=== PATIENT | female | born 1935 | race Caucasian/White ===

== ENCOUNTER 2018-11-25 13:08 | Emergency (ER) | payer MEDICARE, BC ==
[2018-11-25 13:51] VITALS: BP 188/84
--- NOTE | 2018-11-25 13:56 | ER Document Report ---
ED Blood Pressure Problem - General Chief Complaint: High Blood Pressure Stated Complaint: BLOOD PRESSURE ISSUES Time Seen by Provider: 11/25/18 13:21 Notes: Patient is a 82-year-old female presents to the emergency department for fluctuation in her blood pressure. Patient states her primary care provider has been "watching my blood pressures closely" over the last couple of weeks. States she has had increasing and decreases in her blood pressures relatively frequently. States yesterday morning she took her blood pressure and it was 118/68. States today prior to arrival to the emergency department she took it on and it was 154/82. States she is visiting from [place]. States she is here for a family reunion "there are so many people everywhere." States she does feel very anxious about her blood pressure and that her entire family is in town for this family reunion. Patient is denying headache, lightheadedness, dizziness, weakness, chest pain, shortness of breath, any other symptoms. Patient states she would not have presented to the emergency department except "every time I took my blood pressure it had a different reading." Patient takes valsartan, HCTZ, amlodipine, propranolol TRAVEL OUTSIDE OF THE [place] IN LAST 30 DAYS: No - Related Data Allergies/Adverse Reactions: No Known Allergies Allergy (Verified 11/25/18 13:09) Past Medical History - General Information source: Patient - Social History Smoking Status: Former Smoker Frequency of alcohol use: occassionally with dinner Drug Abuse: None Family History: Reviewed & Not Pertinent Patient has suicidal ideation: No Patient has homicidal ideation: No - Past Medical History Cardiac Medical History: Reports: Hx Hypertension Renal/ Medical History: Denies: Hx Peritoneal Dialysis Past Surgical History: Reports: Hx Breast Surgery - left lumpectomy, Hx Thyroid Surgery - completely removed Review of Systems - Review of Systems Constitutional: No symptoms reported EENT: No symptoms reported Cardiovascular: No symptoms reported Respiratory: No symptoms reported Gastrointestinal: No symptoms reported Genitourinary: No symptoms reported Female Genitourinary: No symptoms reported Musculoskeletal: No symptoms reported Skin: No symptoms reported Hematologic/Lymphatic: No symptoms reported Neurological/Psychological: No symptoms reported Physical Exam - Vital signs Vitals: Temp Pulse Resp BP Pulse Ox 98.0 F 70 14 169/95 H 98 11/25/18 13:11 11/25/18 13:11 11/25/18 13:11 11/25/18 13:11 11/25/18 13:11 - Notes Notes: GENERAL: Alert, interacts well. No acute distress. HEAD: Normocephalic, atraumatic. EYES: Pupils equal, round, and reactive to light. Extraocular movements intact. ENT: Oral mucosa moist, tongue midline. NECK: Full range of motion. Supple. Trachea midline. LUNGS: Clear to auscultation bilaterally, no wheezes, rales, or rhonchi. No respiratory distress. HEART: Regular rate and rhythm. No murmur ABDOMEN: Soft, non-tender. Non-distended. Bowel sounds present in all 4 quadrants. EXTREMITIES: Moves all 4 extremities spontaneously. No edema, normal radial and dorsalis pedis pulses bilaterally. No cyanosis. 5 out of 5 strength all 4 extremities BACK: no cervical, thoracic, lumbar midline tenderness. No saddle anesthesia, normal distal neurovascular exam. NEUROLOGICAL: Alert and oriented x3. Normal speech. cranial nerves II through XII grossly intact PSYCH: Normal affect, normal mood. SKIN: Warm, dry, normal turgor. No rashes or lesions noted. Course - Re-evaluation Re-evalutation: 11/25/18 13:50 Discussed this case with my attending Dr. Cash Sanchez. Discussed patient's anxiety and fluctuating blood pressures. Discussed patient's medication regimen. Dr. Sanchez and iron agreements the patient should follow-up with her primary care provider tomorrow. Discussed with her that she can call him although he is in [place] should he want to change any of her medication regimens he could do that over the phone. Also discussed with patient close return precautions. Discussed should she develop headache, chest pain, dizziness, weakness, trouble breathing, lightheadedness, any other symptoms she should return to the emergency room. Also discussed with her that she should continue to take her medications as prescribed. Patient stable for discharge. - Vital Signs Vital signs: Temp Pulse Resp BP Pulse Ox 98.0 F 70 14 169/95 H 98 11/25/18 13:11 11/25/18 13:11 11/25/18 13:11 11/25/18 13:11 11/25/18 13:11 Discharge - Discharge Clinical Impression: Hypertension Qualifiers: Hypertension type: unspecified Qualified Code(s): I10 - Essential (primary) hypertension Condition: Stable Disposition: HOME, SELF-CARE Instructions: High Blood Pressure ([facility]) Additional Instructions: As we discussed you have been seen and treated in the emergency department for your high blood pressure. It is my recommendation that you call your primary care provider today or tomorrow. It is also my recommendation that you continue to take your blood pressure medications as prescribed and take your blood pressure twice a day. Please return to the emergency room should you have any concerns to include but not limited to chest pain, shortness of breath, dizziness, weakness, lightheadedness.
== END 2018-11-25 13:55 | disposition home or self-care (01) ==
LOC: ER 13:08
DX: I10 Essential (primary) hypertension (principal); F41.9 Anxiety disorder, unspecified; Z79.899 Other long term (current) drug therapy; Z87.891 Personal history of nicotine dependence
CPT/HCPCS: 99283